=== PATIENT | male | born 1980 | race Caucasian/White ===

== ENCOUNTER 2020-11-12 10:17 | Emergency (ER) | payer BC, SELFPAY ==
[2020-11-12 10:29] VITALS: BP 131/74; PULSE 98; RESP 16; TEMP 36.5; O2SAT 98
--- NOTE | 2020-11-12 10:34 | ED.UPPEXIN ---
HPI - Extremity Injury (Upper) General Chief Complaint: Extremity Injury, Upper Stated Complaint: swelling righrt hand Time Seen by Provider: 11/12/20 10:34 Source: patient Mode of arrival: ambulatory Limitations: no limitations History of Present Illness HPI narrative: Karl Sanchez is a 40 yo male with a PMH of lymphoma, hypothyroid, high cholesterol, that has been in remission since 2009, who comes to [facility] with complaints of right hand swelling right ankle pain and later in discussion right shoulder pain-right shoulder pain is old complaint, but hand and ankle started on Sunday. 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 EYES: Denies visual changes, redness, discharge. ENT: Denies rhinorrhea, congestion, sore throat, otalgia. CARDIOVASCULAR: Denies chest pain, palpitations, edema. RESPIRATORY: Denies dyspnea, wheezing, cough GASTROINTESTINAL: Denies abdominal pain, nausea, vomiting, diarrhea. GENITOURINARY: Denies dysuria, hematuria, abnormal discharge SKIN: Denies rash or itching. NEUROLOGIC: Denies numbness, or focal weakness. PSYCHIATRIC: Denies anxiety or depression. Right hand pain and swelling right ankle pain PMFSH Past Medical History Medical History High cholesterol Hodgkin's disease in adult Hypothyroid Renal calculi Social History Social History Smoking status: Never smoker Alcohol intake: current Gender identity (if verbalized by the patient): Male Comments At time of signature, I agree with nursing past medical, surgical, social and family history. There is no relevant family history pertinent to the presenting complaint. Exam Narrative: Exam Narrative: GENERAL: This is a well-nourished, well-developed patient, in mild distress. HEAD: normocephalic, atraumatic. EYES: Sclera clear/white. Vision is grossly intact. EARS: External ears normal, Hearing grossly intact. NOSE: External nose normal without nasal discharge, nares without redness, no rhinorrhea. THROAT: Mucous membranes moist, NECK: Neck supple, non-tender CARDIOVASCULAR: Regular rate and rhythm without murmurs, gallops, or rubs. RESPIRATORY: Clear to auscultation. Breath sounds equal bilaterally. No wheezes, rales, or rhonchi. GASTROINTESTINAL: Abdomen soft, SKIN: warm, intact with no suspicious lesions or rash, good texture and turgor. NEURO: awake, alert, and oriented to person, place and time. There were no obvious focal neurologic abnormalities. Steady gait EXTREMITIES: Normal range of motion. R shoulder full ROM but some aching (old complaint), R hand mild edema, slightly weaker on R than L on inner finger strength, finger opposition slightly hesitant, R ankle swelling BACK: Nontender without deformity Course Course Emergency Course: Patient comes to [facility] for evaluation of right hand pain and swelling and right ankle pain since Sunday he called his doctor at [facility] who had treated his lymphoma and was referred to an urgent care here for evaluation Discussed with patient the options that he probably needs blood work and may need some imaging depending on how the emergency room staff feels about the symptoms so he was referred to [place] emergency room and I spoke with Dr. Mckeon to discuss the vague right-sided symptoms he was experiencing CREDIT CARD CLERK/PA Physician Supervision Vital Signs Vital signs: Vital Signs Temperature 97.7 F
== END 2020-11-12 11:00 | disposition short-term general hospital (02) ==
PROVIDERS: Emergency Provider Nurse Practitioner; PCP Student in an Organized Health Care Education/Training Program
DX: R22.31 Localized swelling, mass and lump, right upper limb (principal); M25.571 Pain in right ankle and joints of right foot; E78.00 Pure hypercholesterolemia, unspecified; E03.9 Hypothyroidism, unspecified; Z85.71 Personal history of Hodgkin lymphoma; Z92.21 Personal history of antineoplastic chemotherapy; Z92.3 Personal history of irradiation
CPT/HCPCS: 99212; G0463

== ENCOUNTER 2020-11-12 11:15 | Emergency (ER) | payer BC, SELFPAY ==
[2020-11-12] VITALS (10 sets, daily range): BP systolic 134–145; BP diastolic 77–93; PULSE 70–88; RESP 14–23; TEMP 36.5; O2SAT 98–99
--- NOTE | ~2020-11-12 | XR_ITS ---
EXAMINATION: XR hand RT min 3V EXAM DATE: 11/12/2020 13:03 INDICATION: No known recent injury provided at this time. Pain and swelling of the right hand. TECHNIQUE: Right hand frontal, lateral and oblique projections obtained and reviewed. There is no pr ior study for comparison. FINDINGS: Right metacarpal bones are unremarkable. There are no bony erosions identified. There are no acute fractures or dislocations identified. There is no subcutaneous gas. The soft tissue is unr emarkable. There are no radiopaque foreign bodies. IMPRESSION: 1. Unremarkable right hand exam. Reviewed, dictated and finalized at location A.
--- NOTE | ~2020-11-12 | US_ITS ---
EXAMINATION: US venous doppler UE RT EXAM DATE: 11/12/2020 13:26 INDICATION: Right hand swelling. TECHNIQUE: Multiple grayscale, color flow, Doppler sonographic images of the right upper extremity ve ins obtained by technologist. Compression was performed where able. There is no prior study for harpreet chen. FINDINGS: Right upper extremity: Jugular vein: ------------> Normal. Subclavian vein: --------> Normal. Axillary vein:------------> Normal. Brachial vein:-----------> Normal. Basilic vein: ------------> Normal. Cephalic vein: ----------> Normal. Radial vein: ------------> Normal. Ulnar vein: > Normal. IMPRESSION: No deep venous thrombosis of the right upper extremity. Reviewed, dictated and finalized at location A.
--- NOTE | 2020-11-12 12:38 | ED.GENADULT ---
HPI - General Adult General Chief complaint: Unspecified Stated complaint: pain in R side of body Time Seen by Provider: 11/12/20 12:14 History of Present Illness HPI narrative: Pain and swelling in the right hand for the past 2 days. The pain feels like stiffness. It gets worse throughout the course of the days. The swelling is mild at this time, but he reports that it was worse yesterday. He did have some pain in the left ankle as well. No visible swelling or rash. He has a history of non-Hodgkin lymphoma. He has a small wound over the 5th MCP where he removed a splinter. Related Data Home Medications Medication Instructions Recorded Confirmed atorvastatin 11/12/20 dexlansoprazole [Dexilant] mg 11/12/20 levothyroxine 11/12/20 sertraline mg 11/12/20 trazodone 11/12/20 Allergies Allergy/AdvReac Type Severity Reaction Status Date / Time No Known Allergies Allergy Unverified 02/09/15 17:24 Review of Systems Constitutional: Constitutional: Denies fever(s) and Denies weakness Cardiovascular: Cardiovascular: Denies chest pain Respiratory: Respiratory: Denies dyspnea Gastrointestinal: Gastrointestinal: Denies nausea Musculoskeletal: Musculoskeletal: Denies back pain and Denies myalgias Integumentary/Breasts: Skin/Breast: Reports as per HPI Neurologic: Reports system reviewed and no additional complaints, except as documented PMFSH Past Medical History Medical History High cholesterol Hodgkin's disease in adult Hypothyroid Renal calculi Social History Social History Smoking status: Never smoker Alcohol intake: current Gender identity (if verbalized by the patient): Male Exam Const: General: healthy appearing, no acute distress and alert Orientation/consciousness: patient oriented x3 HENMT: Head: normal to inspection Neck: Neck: normal visual inspection Chest: Chest palpation & inspection: no tenderness Resp: Effort & Inspection: normal respiratory effort Auscultation: clear to auscultation bilaterally, no rales, no rhonchi and no wheezes Cardio: Jugular venous distension: no JVD Rate: regular rate Rhythm: regular rhythm Heart sounds: no murmurs Other: 2+ right radial Skin: Other: minimal erythema around small healing puncture to right hand Neuro: General: patient oriented x3 and moves all extremities Speech: normal speech Motor exam (neuro): 5/5 motor strength present throughout Extrem: General: no edema Other: mild swelling to right hand and wrist. minimal tenderness over 2nd MCP. Psych: Appearance: well kempt Affect: normal affect Course Vital Signs Vital signs: Vital Signs Temperature 36.5 C 11/12/20 11:18 Pulse Rate 70 11/12/20 11:18 Respiratory Rate 16 11/12/20 11:18 Blood Pressure 137/77 11/12/20 11:18 Pulse Oximetry 99 11/12/20 11:18 Temperature 36.5 C 11/12/20 11:18 Pulse Rate 81 11/12/20 12:47 Respiratory Rate 15 11/12/20 12:47 Blood Pressure 140/93 H 11/12/20 12:46 Pulse Oximetry 98 11/12/20 13:23 Medical Decision Making MDM Narrative Medical decision making narrative: X-ray and labs negative. Most likely related to immune response to splinter. Differential Diagnosis Differential Diagnosis: DVT, Chronic inflammatory condition, reactive arthritis, OA, other Medical Records Medical records reviewed: Yes I reviewed the external patient's medical records. Vital Signs Vital Signs: Vital Signs Temperature 36.5 C 11/12/20 11:18 Pulse Rate 70 11/12/20 11:18 Respiratory Rate 16 11/12/20 11:18 Blood Pressure 137/77 11/12/20 11:18 Pulse Oximetry 99 11/12/20 11:18 Temperature 36.5 C 11/12/20 11:18 Pulse Rate 81 11/12/20 12:47 Respiratory Rate 15 11/12/20 12:47 Blood Pressure 140/93 H 11/12/20 12:46 Pulse Oximetry 98 11/12/20 13:23 Lab Data Result diagrams: 0
[2020-11-12 13:50] LABS: Basophils Absolute Auto 0.1 K/mm3 (0.0-0.1); Basophils Percent Auto 1.1 % (0.2-1.2); Eosinophils Absolute Auto 0.1 K/mm3 (0-0.3); Eosinophils Percent Auto 1.7 % (0-4.4); Hematocrit 48.5 % (42.0-52.0); Hemoglobin 16.4 g/dL (14.0-18.0); Immature Granulocyte Absolute 0.04 K/mm3 (0.00-0.031); Immature Granulocyte Percent A 0.8 % (0-0.5); Lymphocytes Absolute Auto 1.37 K/mm3 (0.9-3.2); Lymphocytes Percent Auto 25.8 % (18.3-44.2); Mean Corpuscular HGB Conc 33.8 g/dl (32-36); Mean Corpuscular Hemoglobin 29.1 pg (26-34); Mean Corpuscular Volume 86.1 fl (80-100); Mean Platelet Volume 9.6 fl (7.4-10.4); Monocytes Absolute Auto 0.5 K/mm3 (0.1-0.6); Neutrophils Absolute Auto 3.3 K/mm3 (1.3-6.7); Neutrophils Percent Auto 61.6 % (45.5-73.1); Platelet Count Result 191 k/mm3 (150-375); Red Blood Count 5.63 M/mm3 (4.6-6.20); Red Cell Distribution Width 14.2 % (11.5-14.5); White Blood Count 5.3 K/mm3 (4.5-10.0)
[2020-11-12 14:00] LABS: Anion Gap 5 mmol/L (8-16); Blood Urea Nitrogen 17 mg/dL (9-20); Calcium 9.3 mg/dL (8.4-10.2); Carbon Dioxide 30 mmol/L (22-30); Chloride 106 mmol/L (98-107); Estimated CRCL calculation 119 ml/min; Estimated Glomerular Filt Rate > 60; Glucose 87 mg/dL (75-110); Sodium 141 mmol/L (137-145)
[2020-11-12 14:03] LABS: CRP < 0.5 mg/dL (<1.0)
[2020-11-12 14:28] LABS: Erythrocyte Sedimentation Rate 1 mm/hr (0-20)
[2020-11-12] MEDS: KETOROLAC 30 MG/ML VIAL (*BKC) IV PUSH (14:47)
== END 2020-11-12 14:54 | disposition home or self-care (01) ==
PROVIDERS: Emergency Provider Emergency Medicine; PCP Student in an Organized Health Care Education/Training Program
DX: M79.89 Other specified soft tissue disorders (principal); E78.00 Pure hypercholesterolemia, unspecified; E03.9 Hypothyroidism, unspecified; Z87.442 Personal history of urinary calculi; Z85.72 Personal history of non-Hodgkin lymphomas
CPT/HCPCS: 36415; 73130; 80048; 85025; 85652; 86140; 93971; 96374; 99284; J1885

== ENCOUNTER 2021-01-27 22:38 | Emergency (ER) | payer BC, SELFPAY ==
--- NOTE | ~2021-01-27 | CT_ITS ---
EXAMINATION: CT brain wo con EXAM DATE: 01/27/2021 23:22 INDICATION: Altered mental status, pain in left muslim. Confusion, headache. TECHNIQUE: Spiral CT of the head was performed without contrast. Axial, coronal and sagittal images were reviewed. The dose-length product (DLP) for this examination was 681.00 mGy-cm. The exposure w as tailored according to patient size, and iterative reconstruction (ASIR) was used as additional dos e reduction technique. There is no prior study for comparison. FINDINGS: There is no acute intraparenchymal hemorrhage. No evidence of intraparenchymal brain mass lesion. No evidence of acute infarction. There is no mass effect or midline shift. The ventricles are normal in size. There are no extra-axial collections. There are no acute calvarial fractures. T he orbits are unremarkable. Soft tissue is unremarkable. The visualized sinuses and mastoid air pascual ls are well aerated. IMPRESSION: 1. Unremarkable head CT examination. Reviewed, dictated and finalized at location G.
[2021-01-27 22:38] VITALS: BP 120/73; PULSE 104; RESP 18; TEMP 37.3; O2SAT 100
--- NOTE | 2021-01-27 22:55 | ED.GENADULT ---
HPI - General Adult General Chief complaint: Altered Mental Status <ANITHA Collins Last Filed: 01/28/21 01:01> Stated complaint: headache <ANITHA Collins Last Filed: 01/28/21 01:01> Time Seen by Provider: 01/27/21 22:46 <ANITHA Collins Last Filed: 01/28/21 01:01> Source: patient and family () <ANITHA Collins Last Filed: 01/28/21 01:01> Mode of arrival: ambulatory <ANITHA Collins Filed: 01/28/21 01:01> Limitations: no limitations <ANITHA Collins Last Filed: 01/28/21 01:01> History of Present Illness HPI narrative: Primary history is from patient's . Her began complaint of pain in the left side of his head this evening he does have a history of migraines, so she attempted to treat with Tylenol and ibuprofen, and an ice pack. But then he began speaking incoherently so she called EMS for fear he was having a stroke. When EMS arrived the patient began saying something about the local convenient store that he goes to and when asked what he was talking about he said something about CBD. So his called me convenience store, they are familiar with him there and stated that this was the first time that he had bought a package of delta 8 chewies. She now feels that he is having a reaction to this product. The patient is constantly asking questions, kicking his legs and grabbing the left side of his head. <ANITHA Collins Last Filed: 01/28/21 01:01> Related Data Home medications: Home Medications Medication Instructions Recorded Confirmed atorvastatin 11/12/20 dexlansoprazole [Dexilant] mg 11/12/20 levothyroxine 11/12/20 sertraline mg 11/12/20 trazodone 11/12/20 <ANITHA Collins Last Filed: 01/28/21 01:01> Allergies/adverse reactions: Allergies Allergy/AdvReac Type Severity Reaction Status Date / Time No Known Allergies Allergy Unverified 02/09/15 17:24 <Miriam Metcalf PA-C - Last Filed: 01/28/21 01:01> [facility] Past Medical History Medical History: Medical History High cholesterol Hodgkin's disease in adult Hypothyroid Renal calculi <Miriam Metcalf PA-C - Last Filed: 01/28/21 01:01> Social History Social History: Social History Smoking status: Never smoker Alcohol intake: current Gender identity (if verbalized by the patient): Male <Miriam Metcalf PA-C - Last Filed: 01/28/21 01:01> Exam Const: General: healthy appearing <Miriam Metcalf PA-C - Last Filed: 01/28/21 01:01> Limitations: altered mental status <Miriam Metcalf PA-C - Last Filed: 01/28/21 01:01> HENMT: Head: normal to inspection <ANITHA Collins Last Filed: 01/28/21 01:01> Eyes: Conjunctivae: conjunctivae normal <Miriam Metcalf PA-C - Last Filed: 01/28/21 01:01> Pupils: Equal, round and reactive pupils present <Miriam Metcalf PA-C - Last Filed: 01/28/21 01:01> Resp: Effort & Inspection: normal respiratory effort <ANITHA Collins Last Filed: 01/28/21 01:01> Auscultation: clear to auscultation bilaterally <ANITHA Collins Last Filed: 01/28/21 01:01> Cardio: Rate: regular rate <ANITHA Collins Last Filed: 01/28/21 01:01> Rhythm: regular rhythm <Miriam Metcalf PA-C - Last Filed: 01/28/21 01:01> GI: GI Palp: Yes Soft to palpation <ANITHA Collins Last Filed: 01/28/21 01:01> Skin: General skin exam: normal color <ANITHA Collins Last Filed: 01/28/21 01:01> Rashes: no rashes <ANITHA Collins Last Filed: 01/28/21 01:01> Wounds: no wounds <ANITHA Collins Last Filed: 01/28/21 01:01> Neuro: General: patient oriented x3, moves all extremities and no focal motor deficits <ANITHA Collins Last Filed: 01/28/21 01:01> Extrem: General: normal to inspection <Miriam Metcalf
--- NOTE | 2021-01-27 23:15 | PC.NURSE ---
Pt to CT scan at this time.
[2021-01-27] MEDS: SODIUM CHLORIDE 0.9% IV 1,000 ML 999 ML IV CONT (23:26)
--- NOTE | 2021-01-27 23:27 | PC.NURSE ---
Pt unable to void at this time. Refusing straight catheter at this time. Urinal at bedside.
[2021-01-27 23:31] LABS: Alanine Aminotransferase 27 U/L (4-50); Albumin Level 4.3 g/dL (3.5-5.1); Alkaline Phosphatase 89 U/L (38-126); Anion Gap 8 mmol/L (8-16); Aspartate Amino Transferase 29 U/L (17-59); Bilirubin,Total 0.5 mg/dL (0.2-1.3); Blood Urea Nitrogen 17 mg/dL (9-20); Calcium 9.4 mg/dL (8.4-10.2); Carbon Dioxide 27 mmol/L (22-30); Chloride 104 mmol/L (98-107); Estimated CRCL calculation 73 ml/min; Estimated Glomerular Filt Rate 52; Glucose 111 mg/dL (75-110); Potassium 3.6 mmol/L (3.4-5.0); Sodium 139 mmol/L (137-145)
[2021-01-27 23:36] LABS: Basophils Absolute Auto 0.1 K/mm3 (0.0-0.1); Eosinophils Absolute Auto 0.1 K/mm3 (0-0.3); Eosinophils Percent Auto 1.5 % (0-4.4); Hematocrit 46.9 % (42.0-52.0); Hemoglobin 15.7 g/dL (14.0-18.0); Immature Granulocyte Absolute 0.04 K/mm3 (0.00-0.031); Immature Granulocyte Percent A 0.7 % (0-0.5); Lymphocytes Absolute Auto 1.43 K/mm3 (0.9-3.2); Lymphocytes Percent Auto 24.4 % (18.3-44.2); Mean Corpuscular HGB Conc 33.5 g/dl (32-36); Mean Corpuscular Hemoglobin 29.1 pg (26-34); Mean Platelet Volume 9.9 fl (7.4-10.4); Monocytes Absolute Auto 0.6 K/mm3 (0.1-0.6); Monocytes Percent Auto 9.4 % (2.6-8.5); Neutrophils Absolute Auto 3.7 K/mm3 (1.3-6.7); Platelet Count Result 203 k/mm3 (150-375); Red Blood Count 5.39 M/mm3 (4.6-6.20); Red Cell Distribution Width 13.8 % (11.5-14.5); White Blood Count 5.9 K/mm3 (4.5-10.0)
[2021-01-28] VITALS: BP 110/66; PULSE 87; RESP 18; O2SAT 97
[2021-01-28] MEDS: KETOROLAC 30 MG/ML VIAL (*BKC) IV PUSH (00:18)
[2021-01-28 00:25] LABS: Amphetamine Screen Urine Negative (Negative); Barbiturate Screen Urine Negative (Negative); Benzodiazepines Screen Urine Negative (Negative); Cannabinoid Screen Urine Positive (Negative); Cocaine Screen Urine Negative (Negative); Methadone Screen Urine Negative (Negative); Opiate Screen Urine Negative (Negative); Phencyclidine Screen Urine Negative (Negative)
[2021-01-28 00:30] VITALS: BP 108/61; PULSE 85; RESP 16; O2SAT 98
[2021-01-28 01:00] VITALS: BP 105/60; PULSE 85; RESP 15; O2SAT 98
[2021-01-28 01:19] VITALS: BP 113/68; PULSE 89; RESP 15; O2SAT 100
== END 2021-01-28 01:20 | disposition home or self-care (01) ==
PROVIDERS: Physician Assistant; Emergency Provider Emergency Medicine; PCP Student in an Organized Health Care Education/Training Program
DX: G43.009 Migraine without aura, not intractable, without status migrainosus (principal); T50.905A Adverse effect of unspecified drugs, medicaments and biological substances, initial encounter; E78.5 Hyperlipidemia, unspecified; E03.9 Hypothyroidism, unspecified
CPT/HCPCS: 36415; 70450; 80053; 80307; 85025; 96361; 96374; 99284; J1885; J7030

== ENCOUNTER 2023-07-11 18:32 | Emergency (ER) | payer BC, SELFPAY ==
[2023-07-11 18:51] VITALS: BP 128/69; PULSE 89; RESP 18; TEMP 36.6; O2SAT 100
[2023-07-11 18:52] VITALS: BP 128/69; PULSE 89; RESP 18; TEMP 36.6; O2SAT 100
--- NOTE | 2023-07-11 19:06 | ED.URI ---
HPI - URI/Sore Throat General Chief Complaint: Upper Respiratory Infection Stated Complaint: Sinus Time Seen by Provider: 07/11/23 19:07 Source: patient Mode of arrival: ambulatory Limitations: no limitations History of Present Illness HPI Narrative: 43-year-old male presents with complaint of nasal congestion, sinus pressure, postnasal drainage, intermittent sore throats, coughing, sinus headaches for the past 10 days. Afebrile. Taking Savita, Mucinex Sinus severe, sign neck is with no relief of symptoms. All systems reviewed and negative except as noted above. Related Data Home Medications Medication Instructions Recorded Confirmed atorvastatin 20 mg tablet 11/12/20 levothyroxine 50 mcg tablet 11/12/20 sertraline 50 mg tablet mg 11/12/20 gabapentin 300 mg capsule mg 07/11/23 tizanidine 2 mg tablet mg 07/11/23 Allergies Allergy/AdvReac Type Severity Reaction Status Date / Time methylprednisolone AdvReac Other Verified 07/11/23 18:52 prednisone AdvReac Other Verified 07/11/23 18:51 Review of Systems Review of Systems: CONSTITUTIONAL: Denies fever, chills, or sweats. EYES: Denies visual changes, redness, or discharge. ENT: Reports rhinorrhea, congestion, sore throat, bilateral otalgia. CARDIOVASCULAR: Denies chest pain, palpitations, or edema. RESPIRATORY: reports cough. Denies dyspnea. GASTROINTESTINAL: Denies abdominal pain, nausea, vomiting, or diarrhea. GENITOURINARY: Denies dysuria or hematuria. SKIN: Denies rash or itching. MUSCULOSKELETAL: Denies back pain, joint pain, or myalgia. NEUROLOGIC: reports headache. Denies numbness, or weakness. PSYCHIATRIC: Denies anxiety or depression. All other systems reviewed are negative, except as documented in HPI. PENDING SALE TO [facility] Past Medical History Medical History High cholesterol Hodgkin's disease in adult Hypothyroid Renal calculi Social History Social History Smoking status: Never smoker Alcohol intake: current Gender identity (if verbalized by the patient): Male Comments At time of signature, agree with nursing past medical, surgical, social and family history. There is no relevant family history pertinent to the presenting complaint. Exam Narrative: GENERAL: This is a well-nourished, well-developed patient, in no apparent distress. HEAD: normocephalic, atraumatic. EYES: PERRL. Sclera clear/white. Vision is grossly intact. EARS: External ears normal, auditory canals clear and without drainage, fluid bilateral TMs, bulging, mild erythema to left TM. No perforation bilaterally. Hearing grossly intact. NOSE: External nose normal with Purulent nasal drainage with erythema and swelling to bilateral nares. Tenderness on palpation of maxillary sinus. THROAT: Mucous membranes moist, Erythema with postnasal drainage. NECK: Neck supple, non-tender without lymphadenopathy, masses or thyromegaly. CARDIOVASCULAR: Regular rate and rhythm without murmurs, gallops, or rubs. RESPIRATORY: Clear to auscultation. Breath sounds equal bilaterally. No wheezes, rales, or rhonchi. SKIN: warm, Dry, intact with no suspicious lesions or rash, good texture and turgor. NEURO: awake, alert, and oriented to person, place and time. There were no obvious focal neurologic abnormalities. EXTREMITIES: No joint tenderness, effusion, or edema noted. Course Course Level of Care: Express Care Visit Vital Signs Vital signs: Vital Signs Temperature 36.6 C 07/11/23 18:51 Pulse Rate 89 07/11/23 18:51 Respiratory Rate 18 07/11/23 18:51 Blood Pressure 128/69 07/11/23 18:51 Pulse Oximetry 100 07/11/23 18:51 Oxygen Delivery Room Air 07/11/23 18:51 Temperature 36.6 C 07/11/23 18:52 Pulse Rate 89 07/11/23 18:52 Respiratory Rate 18 07/11/23 18:52 Blood Pressure 128/69 07/11/23 18:52 Pulse Oximetry 100 07/11/23
== END 2023-07-11 19:19 | disposition home or self-care (01) ==
PROVIDERS: Emergency Provider Nurse Practitioner Family; PCP Student in an Organized Health Care Education/Training Program
DX: J01.90 Acute sinusitis, unspecified (principal); H65.03 Acute serous otitis media, bilateral; E78.00 Pure hypercholesterolemia, unspecified; E03.9 Hypothyroidism, unspecified; Z85.71 Personal history of Hodgkin lymphoma
CPT/HCPCS: 99213; G0463